=== PATIENT | male | born 2000 | race Hispanic/Latino ===

== ENCOUNTER 2019-09-10 09:29 | Outpatient (CLI) | payer OTHER ==
--- NOTE | 2019-09-10 11:17 | ULT ---
RIGHT UPPER QUADRANT ULTRASOUND: Date: 09/10/2019 HISTORY: Elevated LFTs. FINDINGS: The liver, gallbladder, right kidney, and visualized portions of the pancreas appear normal. The comm on duct measures 6.0 mm in diameter. No free fluid is seen in Morison's pouch. IMPRESSION: Normal exam. POS: [facility]
== END 2019-09-10 09:30 | disposition home or self-care (01) ==
LOC: BICULT 09:29
PROVIDERS: ATTEND Family Medicine
DX: R17 Unspecified jaundice (principal)
CPT/HCPCS: 76705